=== PATIENT | female | born 1980 | race Two or more races ===

== ENCOUNTER 2016-11-28 11:15 | Emergency (ER) | payer MEDICAID ==
[~2016-11-28] VITALS: Ht 157.5 cm; Wt 64.9 kg
[~2016-11-28 11:15] MED LIST: AMOXICILLIN500 MG ORAL; GENTAMICIN SULF15 G2 TOPIC
[2016-11-28 11:38] VITALS: BP 111/77
[2016-11-28] MEDS ORDERED: AZITHROMYCIN250 MG ORAL (11:44)
[2016-11-28 11:57] VITALS: BP 111/77
--- NOTE | 2016-12-02 16:19 | Emergency Room Report ---
History of Present Illness General Chief Complaint: Flu Like Symptoms Source: Patient Present Illness HPI Patient presents with younger children with similar complaints patient has had increased cough and congestion Also runny nose and sinus fullness Denies any neck pain or photophobia Denies any chest pain or shortness of breath However her cough has been productive Denies any rash Denies any fall or trauma Allergies: Coded Allergies: No Known Allergies (Unverified , 08/02/14) Patient History Past Medical History: see triage record Pertinent Family History: none Reviewed Nursing Documentation: PMH: Agreed, PSxH: Agreed Nursing Documentation-PMH Past Medical History: No Stated History Review of Systems All Other Systems: negative except mentioned in HPI Physical Exam Vital Signs Date Time Temp Pulse Resp B/P Pulse Ox O2 Delivery O2 Flow Rate FiO2 11/28/16 11:21 97.9 95 20 111/77 98 Room Air Sp02 EP Interpretation: reviewed, normal General Appearance: well appearing, no apparent distress Head: normocephalic, atraumatic Eyes: bilateral eye EOMI, bilateral eye PERRL ENT: hearing grossly normal, normal pharynx, TMs + canals normal, uvula midline Neck: full range of motion, supple, no meningismus, no bony tend Respiratory: lungs clear, normal breath sounds, no rhonchi, no respiratory distress, no retraction, no accessory muscle use Cardiovascular #1: normal peripheral pulses, regular rate, rhythm, no edema, no gallop, no JVD, no murmur Gastrointestinal: normal bowel sounds, non tender, soft, no mass, no organomegaly, non-distended, no guarding, no hernia, no pulsatile mass, no rebound Genitourinary: no CVA tenderness Musculoskeletal: normal inspection Neurologic: oriented x3, responsive, replenishment specialist III-XII nml as tested, motor strength/ tone normal, sensory intact Psychiatric: mood/affect normal Skin: normal color, no rash, warm/dry, palpation normal Lymphatic: normal inspection, no adenopathy Medical Decision Making Diagnostic Impression: Primary Impression: bronchitis Additional Impression: Influenza-like symptoms ER Course Patient has findings in line with URI and bronchitis type pathology Appears to be viral in nature Patient is stable and is appropriate for initial considered an outpatient trial Last Vital Signs Date Time Temp Pulse Resp B/P Pulse Ox O2 Delivery O2 Flow Rate FiO2 11/28/16 11:57 97.9 95 20 111/77 98 Room Air Status: unchanged Disposition: HOME, SELF-CARE Condition: Stable Referrals: NOT CHOSEN IPA/MD,REFERRING Patient Instructions: Acute Bronchitis Additional Instructions: Patient is provided with the discharge instructions notified to follow up with primary doctor in the next 2-3 days otherwise return to the er with any worsening symptoms. AAYUSH CARREON D.O. Dec 02, 2016 16:19
== END 2016-11-28 11:55 | disposition home or self-care (01) ==
LOC: EMR 11:43
DX: J20.9 Acute bronchitis, unspecified (principal); J11.1 Influenza due to unidentified influenza virus with other respiratory manifestations
CPT/HCPCS: 99282